=== PATIENT | female | born 1955 | race African-American/Black ===

== ENCOUNTER 2017-04-18 21:35 | Emergency (ER) | payer MEDICARE, MEDICAID ==
[~2017-04-18] VITALS: Ht 167.6 cm; Wt 90.7 kg
[2017-04-18 22:35] VITALS: BP 145/76
[2017-04-18] MEDS: KETOROLAC 30MG/ML VIAL IM ONE (22:35)
== END 2017-04-19 01:15 | disposition home or self-care (01) ==
LOC: ER 21:53
DX: S93.401A Sprain of unspecified ligament of right ankle, initial encounter (principal); I10 Essential (primary) hypertension; E11.9 Type 2 diabetes mellitus without complications; W01.0XXA Fall on same level from slipping, tripping and stumbling without subsequent striking against object, initial encounter; Y93.01 Activity, walking, marching and hiking; Y92.89 Other specified places as the place of occurrence of the external cause; Y99.8 Other external cause status
CPT/HCPCS: 73610; 96372; 99284; J1885